=== PATIENT | male | born 1985 | race Caucasian/White ===

== ENCOUNTER → 2017-04-01 | Outpatient (CLI) | payer BC ==
[~2017-04-01] MED LIST: ALDACTONE25 MG PO; AZITHROMYCIN250 MG PO; HABITROL 21 MG P1 EA TD; LASIX20 MG PO; LEVAQUIN750 MG PO; LISINOPRIL10 MG PO; POTASSIUM CHLO10 MEQ PO; TOPROL XL50 MG PO
== END ==
LOC: RAD 13:55
DX: M54.9 Dorsalgia, unspecified (principal)
CPT/HCPCS: 72110

== ENCOUNTER 2017-04-02 13:17 | Emergency (ER) | payer BC ==
[2017-04-02 14:46] LABS: HEMOGLOBIN 16.7 gm/dl (14.0-17.5); RED BLOOD COUNT 5.21 M/UL (4.20-5.50); WHITE BLOOD COUNT 12.8 K/UL (4.5-11.0)
[2017-04-02 15:13] LABS: BUN/CREATININE RATIO 16 (0-10)
[2017-04-26] MEDS ORDERED: LEVAQUIN750 MG PO (17:40)
[2017-05-06] MEDS ORDERED: AZITHROMYCIN250 MG PO (14:28)
[2017-05-06] MEDS ORDERED: LASIX20 MG PO (14:29)
[2017-05-06] MEDS ORDERED: TOPROL XL50 MG PO (14:29)
[2017-05-06] MEDS ORDERED: ALDACTONE25 MG PO (14:31)
[2017-05-06] MEDS ORDERED: POTASSIUM CHLO10 MEQ PO (14:33)
[2017-05-06] MEDS ORDERED: HABITROL 21 MG P1 EA TD (14:34)
[2017-05-06] MEDS ORDERED: LISINOPRIL10 MG PO (14:36)
== END 2017-04-02 17:10 | disposition home or self-care (01) ==
LOC: ER1 13:17
PROVIDERS: Emergency Medicine
DX: J18.9 Pneumonia, unspecified organism (principal); R03.0 Elevated blood-pressure reading, without diagnosis of hypertension; F17.200 Nicotine dependence, unspecified, uncomplicated
CPT/HCPCS: 36415; 71010; 80053; 83605; 85025; 87040; 87081; 87880; 99284